=== PATIENT | female | born 1975 | race Caucasian/White ===

== ENCOUNTER → 2017-12-04 19:08 | Outpatient (CLI) | payer OTHER ==
[2011-07-25 13:59] VITALS: BMI 27.2
== END | disposition home or self-care (01) ==
LOC: D.MAMMO 11:15
DX: Z12.31 Encounter for screening mammogram for malignant neoplasm of breast (principal)

== ENCOUNTER 2019-07-26 09:10 | Emergency (ER) | payer SELFPAY ==
[~2019-07-26] VITALS: Ht 157.5 cm; Wt 72.7 kg
[2019-07-26 09:34] VITALS: BP 155/93; Ht 157.5 cm; Wt 72.7 kg
[2019-07-26] MEDS ORDERED: VOLTAREN75 MG PO (10:44)
== END 2019-07-26 11:35 | disposition home or self-care (01) ==
LOC: D.ER 09:10
DX: S69.92XA Unspecified injury of left wrist, hand and finger(s), initial encounter (principal); W19.XXXA Unspecified fall, initial encounter

== ENCOUNTER 2021-01-07 17:05 | Emergency (ER) | payer SELFPAY ==
[~2021-01-07] VITALS: Ht 157.5 cm; Wt 68.2 kg
[~2021-01-07 17:05] MED LIST: VOLTAREN75 MG PO
[2021-01-07 17:29] VITALS: Ht 157.5 cm; Wt 68.2 kg
[2021-01-07] MEDS ORDERED: DICLOFENAC SODI50 MG PO (18:51)
[2021-01-07] MEDS ORDERED: MEDROL DOSE PACK4 MG PO (18:51)
[2021-01-07] MEDS ORDERED: ZANAFLEX4 MG PO (18:51)
[2021-01-07 19:25] VITALS: BP 120/78
== END 2021-01-07 19:25 | disposition home or self-care (01) ==
LOC: D.ER 17:05
DX: M54.12 Radiculopathy, cervical region (principal); R20.2 Paresthesia of skin